=== PATIENT | female | born 1950 | race Caucasian/White ===

== ENCOUNTER 2017-08-10 11:23 | Inpatient (IN) | payer MEDICARE ==
--- NOTE | 2017-08-03 13:32 | Diagnostic Imaging Report ---
PROCEDURE: Frontal and lateral views of the chest. COMPARISON: None. INDICATIONS: PREOPERATIVE CHEST XRAY FOR COLON RESECTION FINDINGS: Lines/tubes: None. Lungs: The lungs are mildly hypoinflated. Mild left basilar subsegmental atelectasis. There is no evidence of pneumonia or pulmonary edema. Pleura: There is no pleural effusion or pneumothorax. Heart and mediastinum: The heart and the mediastinum are normal. Mild calcification of aortic arch. Bones: No acute bony abnormality. IMPRESSION: 1. No acute cardiopulmonary disease. Amanda Arita M.D. Dictated by: Amanda Arita M.D. on 08/03/2017 at 13:34 Electronically approved by: Amanda Arita M.D. on 08/03/2017 at 13:34
[2017-08-07 11:44] LABS: BASOPHILS % 0.7 % (0.0-1.0); EOSINOPHILS # (AUTO) 0.5 (0.0-0.4); EOSINOPHILS % 7.6 % (0.0-6.0); HEMATOCRIT 45.4 % (34.2-44.1); HEMOGLOBIN 15.1 g/dL (12.0-16.0); LYMPHOCYTES # (AUTO) 1.1 (1.0-3.2); LYMPHOCYTES % 18.6 % (18.0-39.1); MEAN CORPUSCULAR HEMOGLOBIN 29.8 pg (28-32); MEAN CORPUSCULAR HGB CONC 33.3 g/dL (31-35); MEAN CORPUSCULAR VOLUME 89.5 fL (81-99); MONOCYTES # (AUTO) 0.6 (0.2-0.8); MONOCYTES % 9.3 % (4.4-11.3); NEUTROPHILS # (AUTO) 3.8 (2.1-6.9); NEUTROPHILS % 63.6 % (38.7-80.0); PLATELET COUNT 280 x10e3/uL (140-360); RED BLOOD COUNT 5.07 x10e6/uL (3.6-5.1); RED CELL DISTRIBUTION WIDTH 13.3 % (11.7-14.4)
[2017-08-07 12:01] LABS: ALANINE AMINOTRANSFERASE 29 IU/L (0-55); ALBUMIN 3.4 g/dL (3.5-5.0); ALBUMIN/GLOBULIN RATIO 1.1 (0.8-2.0); ALKALINE PHOSPHATASE 79 IU/L (40-150); ANION GAP 11.9 mmol/L (8-16); BLOOD UREA NITROGEN 19 mg/dL (7-26); BUN/CREATININE RATIO 24 (6-25); CALCIUM 10.3 mg/dL (8.4-10.2); CARBON DIOXIDE 26 mmol/L (22-29); CHLORIDE 109 mmol/L (98-107); CREATININE, SERUM 0.79 mg/dL (0.57-1.11); EST GLOMERULAR FILTRATION RATE > 60 ML/MIN (60-); GLUCOSE 102 mg/dL (74-118); POTASSIUM 4.9 mmol/L (3.5-5.1); SODIUM 142 mmol/L (136-145)
[~2017-08-10] VITALS: Ht 160 cm; Wt 99.8 kg
[~2017-08-10 11:23] MED LIST: MYRBETRIQ50 MG; PANTOPRAZOLE SO40 MG PO; VITAMIN D32000 UNIT
--- OUTSIDE RECORDS SUMMARY | 2017-08-10 11:25 | XMS REPORT ---
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 Allergies, Adverse Reactions, Alerts This patient has no known allergies or adverse reactions. Medications This patient has no known medications. Results Test Description Test Time Test Comments Text Results Atomic Results Result Comments CHEST 2 VIEWS [place] [id number] [place] [id number] Patient Name: GOKUL LINDO MR #: [id number] : 1950 Age/Sex: 67/F Req # : [id number] Adm Physician: Ordered by: CHELLY BECKETT MD Report #: [id number] Location: OR Room/Bed: Procedure: [id number] DX/CHEST 2 VIEWS Exam Date: 08/03/17 Exam Time: 1240 REPORT STATUS: Signed PROCEDURE: Frontal and lateral views of the chest. COMPARISON: None. INDICATIONS: PREOPERATIVE CHEST XRAY FOR COLON RESECTION FINDINGS: Lines/tubes: None. Lungs: The lungs are mildly hypoinflated. Mild left basilar subsegmental atelectasis. There is no evidence of pneumonia or pulmonary edema. Pleura: There is no pleural effusion or pneumothorax. Heart and mediastinum: The heart and the mediastinum are normal. Mild calcification of aortic arch. Bones: No acute bony abnormality. IMPRESSION: 1. No acute cardiopulmonary disease. Amanda Thomas M.D. Dictated by: Amanda Thomas M.D. on 08/03/2017 at 13:34 Electronically approved by: Amanda Thomas M.D. on 08/03/2017 at 13:34 Dictated By: MOISES THOMAS MD, MD [id number] Transcribed By: RUPAL on 08/03/17 1339 COPY TO: CHELLY BECKETT MD
[2017-08-10] MEDS ORDERED: CEFOXITIN SOD 1 GM VIAL ONE (11:43)
[2017-08-10] MEDS ORDERED: BUPIVACAINE HCL 0.5% INJ 30 ML VIAL INJ ONE (12:44)
[2017-08-10] MEDS ORDERED: ROCURONIUM BROMIDE 10 MG/ML 5ML VIAL ONE (14:07)
[2017-08-10] MEDS ORDERED: ONDANSETRON HCL INJ 2 MG/ML VIAL ONE (14:07)
[2017-08-10] MEDS ORDERED: SEVOFLURANE INHAL SOLN 250 ML PEN BTL ONE (14:07)
[2017-08-10] MEDS ORDERED: PROPOFOL IV EMULSION 10 MG/ML 20 ML VIAL ONE (14:07)
[2017-08-10] MEDS ORDERED: EYE LUBRICANT OPTH OINT 3.5GM TUBE OP ONE (14:07)
[2017-08-10] MEDS ORDERED: NEOSTIGMINE 5 MG/5ML SYR ONE (14:07)
[2017-08-10] MEDS ORDERED: DEXAMETHASONE SOD PHOS INJ 4 MG/ML VIAL ONE (14:07)
[2017-08-10] MEDS ORDERED: LIDOCAINE HCL 2% JELLY 5 ML TUBE ONE (14:07)
[2017-08-10] MEDS ORDERED: GLYCOPYRROLATE INJ 1MG/ 5 ML SYR ONE (14:07)
[2017-08-10] MEDS ORDERED: LIDOCAINE HCL 2% LOCAL INJ 5 ML SDV VIAL INJ ONE (14:07)
[2017-08-10] MEDS: DEXTROSE 5%/LACTATED RINGERS 1,000 ML IV SCH ×2 (14:54→18:11)
[2017-08-10] MEDS ORDERED: ONDANSETRON HCL INJ 2 MG/ML VIAL IV PRN (15:00)
[2017-08-10] MEDS ORDERED: NALOXONE HCL INJ 0.4 MG/ML AMP IV PRN ×2 (15:00→15:45)
[2017-08-10] MEDS ORDERED: DIPHENHYDRAMINE HCL INJ 50 MG/ML VIAL IM PRN (15:00)
[2017-08-10] MEDS ORDERED: MORPHINE SULFATE 1 MG/ML 30ML PCA IV PRN (15:00)
[2017-08-10] MEDS ORDERED: ACETAMINOPHEN 1000 MG/100 ML IV PRN ×2 (15:00→15:45)
[2017-08-10] MEDS ORDERED: KETOROLAC TROMETHAMINE 30 MG/ML VIAL IV PRN ×2 (15:00→15:45)
[2017-08-10] MEDS ORDERED: MORPHINE SULFATE 1 MG/ML 30ML PCA ONE (15:12)
--- NOTE | 2017-08-10 15:32 | Operative Report ---
DATE OF PROCEDURE: August 10, 2017 PREOPERATIVE DIAGNOSIS: Left colon diverticulosis, sigmoid colon stricture. POSTOPERATIVE DIAGNOSIS: Left colon diverticulosis, sigmoid colon stricture. PROCEDURE: Laparoscopic-assisted left colon resection. PREPRESS TECHNICIAN: None. ANESTHESIA: General. INDICATIONS AND FINDINGS: The patient is a 67-year-old female with complaints of bleeding with bowel movements and change in her stools. Workup revealed a stricture in the mid sigmoid colon as well as diverticulosis involving the left colon. At surgery, there was diverticular disease involving the descending colon and sigmoid colon, particularly severe in the mid sigmoid colon. Distal sigmoid colon was free of diverticulosis. There was an area in the mid sigmoid colon which was very thickened in the area where the stricture was identified. TECHNIQUE: After adequate general endotracheal anesthesia, with the patient in the supine position, the abdomen was prepped and draped in a sterile fashion with [place] solution. Skin just below the umbilicus was infiltrated with 0.5% Marcaine. Incision was made just below the umbilicus. Abdominal wall was elevated, and a Veress needle was introduced. Pneumoperitoneum was then created. A 10-mm trocar and cannula were then passed through this wound, and the laparoscopic camera was introduced. Initial laparoscopy revealed no free fluid. Colon proximally was mildly dilated. A 5-mm trocar and cannula were placed suprapubically, and a 5-mm trocar and cannula were placed in the epigastrium. These were placed under direct vision. The left colon was mobilized by dividing the peritoneal attachments. Mobilization was carried up to the splenic flexure. The splenic flexure colon was mobilized by dividing the peritoneal attachments, also dissecting omentum away from the distal transverse colon until the colon was completely freed from the spleen and upper abdomen. The distal colon also was mobilized by dividing peritoneal attachments. There were adhesions around the colon which were lysed. The left ureter was identified and preserved. Colon was mobilized all the way down to the peritoneal reflection. The right ureter was also identified and preserved. Once the colon had been completely mobilized, a lower midline incision was made. The colon was delivered up into the wound. The left colon was mobilized. It was dissected. The proximal colon, which was at the distal transverse colon, was divided with the CHARLES stapler. The sigmoid colon was also divided with a CHARLES stapler below the area of where the colon was thickened and inflamed. Mesentery was divided with a ligature device, and the colon was removed. Approximately 30 cm of colon was removed. Initially, anastomosis was made between the proximal and distal colon with a CHARLES stapler and TL-60 stapler. However, the anastomosis did not come together well. It was decided it needed to be redone. This anastomosis was then resected. The colon proximal and distal was divided with a CHARLES stapler. Then the anastomosis was redone and hand sewn in end-to-end fashion using 3-0 silk and 3-0 Vicryl. There was no tension on the anastomosis. Pericolonic fat was also sutured over the suture line along with omentum. The peritoneal cavity was irrigated with saline. All fluid aspirated was inspected for hemostasis, which was seen to be adequate. It was irrigated once again with saline. All fluid aspirated and inspected for hemostasis, which was seen to be adequate. Midline fascia was then closed with a running suture of #1 PDS. Subcutaneous tissue was irrigated with saline, and the skin was closed with kendall to all wounds. Patient tolerated the procedure well. Sterile dressing was applied. Estimated blood loss was 200 mL. There were no complications. All counts were correct. Patient was taken to the recovery room in satisfactory condition. Job#: [id number] cc:MD KATIE AKHTAR MD
[2017-08-10] MEDS ORDERED: HYDROMORPHONE 0.2MG/ML-SOD CHL 30ML PCA SYRINGE IV PRN (15:45)
[2017-08-10] MEDS ORDERED: DIPHENHYDRAMINE HCL 25 MG CAP PO PRN (15:45)
[2017-08-10 16:46] VITALS: BP 135/66
[2017-08-10] MEDS ORDERED: CEFOXITIN 1GM/ DEXTROSE 50ML 50 ML IV SCH (18:00)
[2017-08-10] MEDS ORDERED: CEFOXITIN SOD 1 GM VIAL IV SCH (18:00)
[2017-08-10] MEDS: CEFOXITIN SOD 1 GM VIAL IV SCH (18:11)
[2017-08-10] MEDS: ONDANSETRON HCL 4 MG ORAL DISINTEGRATING TAB SL PRN ×2 (18:19→22:55)
[2017-08-10 18:34] VITALS: BP 135/66
[2017-08-10] MEDS ORDERED: FENTANYL CITRATE/PF 100MCG/2 ML INJ ONE (19:44)
[2017-08-10] MEDS ORDERED: MIDAZOLAM HCL 2 MG/2 ML VIAL ONE (19:44)
[2017-08-10 20:00] VITALS: BP 119/57
[2017-08-11] VITALS (7 sets, daily range): BP systolic 90–126; BP diastolic 51–64
[2017-08-11] MEDS: CEFOXITIN SOD 1 GM VIAL IV SCH ×3 (01:41→12:00)
[2017-08-11] MEDS: DEXTROSE 5%/LACTATED RINGERS 1,000 ML IV SCH ×4 (04:11→22:54)
[2017-08-11] MEDS: ONDANSETRON HCL 4 MG ORAL DISINTEGRATING TAB SL PRN ×2 (04:36→08:30)
[2017-08-11] MEDS ORDERED: HYDROMORPHONE 0.2MG/ML-SOD CHL 30ML PCA SYRINGE IV PRN (06:00)
[2017-08-11 07:13] LABS: BASOPHILS % 0.1 % (0.0-1.0); EOSINOPHILS % 0.1 % (0.0-6.0); HEMATOCRIT 40.7 % (34.2-44.1); HEMOGLOBIN 13.4 g/dL (12.0-16.0); LYMPHOCYTES # (AUTO) 0.5 (1.0-3.2); LYMPHOCYTES % 4.8 % (18.0-39.1); MEAN CORPUSCULAR HEMOGLOBIN 30.1 pg (28-32); MEAN CORPUSCULAR HGB CONC 32.9 g/dL (31-35); MEAN CORPUSCULAR VOLUME 91.5 fL (81-99); MONOCYTES # (AUTO) 1.1 (0.2-0.8); MONOCYTES % 11.4 % (4.4-11.3); NEUTROPHILS % 83.2 % (38.7-80.0); PLATELET COUNT 245 x10e3/uL (140-360); RED BLOOD COUNT 4.45 x10e6/uL (3.6-5.1); RED CELL DISTRIBUTION WIDTH 13.4 % (11.7-14.4)
[2017-08-11 07:42] LABS: ANION GAP 11.4 mmol/L (8-16); CALCIUM 9.8 mg/dL (8.4-10.2); CREATININE, SERUM 0.94 mg/dL (0.57-1.11); POTASSIUM 4.4 mmol/L (3.5-5.1)
[2017-08-11] MEDS: PANTOPRAZOLE SOD 40 MG TABEC PO SCH (08:30)
[2017-08-12] VITALS (7 sets, daily range): BP systolic 103–139; BP diastolic 55–62
[2017-08-12] MEDS: DEXTROSE 5%/LACTATED RINGERS 1,000 ML IV SCH ×2 (06:54→13:14)
[2017-08-12] MEDS ORDERED: HYDROCODONE/APAP 5MG-325MG TAB PO PRN (07:15)
[2017-08-12 07:38] LABS: HEMATOCRIT 37.8 % (34.2-44.1); HEMOGLOBIN 12.4 g/dL (12.0-16.0); MEAN CORPUSCULAR HEMOGLOBIN 29.8 pg (28-32); MEAN CORPUSCULAR HGB CONC 32.8 g/dL (31-35); MEAN CORPUSCULAR VOLUME 90.9 fL (81-99); PLATELET COUNT 224 x10e3/uL (140-360); RED BLOOD COUNT 4.16 x10e6/uL (3.6-5.1); RED CELL DISTRIBUTION WIDTH 13.5 % (11.7-14.4)
[2017-08-12 07:58] LABS: BLOOD UREA NITROGEN 12 mg/dL (7-26); BUN/CREATININE RATIO 16 (6-25); CARBON DIOXIDE 29 mmol/L (22-29); CHLORIDE 112 mmol/L (98-107); CREATININE, SERUM 0.73 mg/dL (0.57-1.11); EST GLOMERULAR FILTRATION RATE > 60 ML/MIN (60-); GLUCOSE 117 mg/dL (74-118); SODIUM 145 mmol/L (136-145)
[2017-08-12] MEDS: PANTOPRAZOLE SOD 40 MG TABEC PO SCH (08:02)
[2017-08-12 10:44] LABS: ANISOCYTOSIS SLIGHT; BAND NEUTROPHILS % (MANUAL) 1 %; LYMPHOCYTES % (MANUAL) 17 % (19-48); MONOCYTES % (MANUAL) 9 % (3.4-9.0); MYELOCYTES % (MANUAL) 1 % (0-0); NEUTROPHILS % (MANUAL) 69 % (40-74)
[2017-08-12 10:45] LABS: HYPOCHROMASIA SLIGHT; PLATELET ESTIMATE ADEQUATE; PLATELET MORPHOLOGY COMMENT NORMAL; RBC MORPHOLOGY COMMENT NORMAL
[2017-08-13] VITALS: BP 109/54
[2017-08-13 04:00] VITALS: BP 108/51
[2017-08-13 07:39] VITALS: BP 108/51
[2017-08-13] MEDS: DEXTROSE 5%/LACTATED RINGERS 1,000 ML IV SCH (07:59)
[2017-08-13] MEDS: PANTOPRAZOLE SOD 40 MG TABEC PO SCH (07:59)
[2017-08-13 08:28] VITALS: BP 132/64
[2017-08-13 11:35] VITALS: BP 131/57
--- NOTE | 2017-08-13 16:50 | Discharge Summary ---
ADMITTING DIAGNOSES 1. Sigmoid colon stricture. 2. Left colon diverticulosis. DISCHARGE DIAGNOSES 1. Sigmoid colon stricture. 2. Left colon diverticulosis. PRINCIPAL PROCEDURE: Laparoscopic-assisted left colon resection. HISTORY OF PRESENT ILLNESS: The patient is a 67-year-old female who had complaints of bleeding with bowel movements and findings suggestive of ischemic colitis with a stricture. HOSPITAL COURSE: The patient was admitted to the hospital and underwent surgery the same day as admission. She had laparoscopic-assisted left colon resection. Postoperatively, the patient was stable. She was seen in consultation by Dr. Chung Carter for medical management. She was started on a liquid diet on the 1st postoperative day. She started passing flatus. Bowel function returned to normal. Wounds remained clean. Diet was advanced without problem to a regular diet. She was discharged home on the 3rd postop day. At the time of discharge, she was tolerating her diet. Wounds were clean. She was having bowel movements. Discharge medication is [place]. She will follow up with Dr. Cheney approximately 1 week after discharge. She was sent home in satisfactory condition on a regular diet. Job#: [id number]
== END 2017-08-13 15:07 | disposition home or self-care (01) | DRG 330 ==
LOC: OR 11:23 → MED/SURG 15:42
PROVIDERS: ADMIT Surgery; ATTEND Surgery
PROC: 0DTG4ZZ Resection of Left Large Intestine, Percutaneous Endoscopic Approach (ICD-10-PCS; principal; 2017-08-10 13:30)
DX: K57.30 Diverticulosis of large intestine without perforation or abscess without bleeding (principal); K56.699 Other intestinal obstruction unspecified as to partial versus complete obstruction; K55.9 Vascular disorder of intestine, unspecified; K21.9 Gastro-esophageal reflux disease without esophagitis
CPT/HCPCS: 36415; 71046; 80048; 80053; 85007; 85025; 85027; 86850; 86900; 88307; 93005; J0694; J1100; J1885; J2001; J2250; J2270; J2405; J7120

== ENCOUNTER 2021-11-23 15:37 | Emergency (ER) | payer MEDICARE ==
[~2021-11-23] VITALS: Ht 160 cm; Wt 89.8 kg
[2021-11-23 16:31] LABS: BASOPHILS % 0.3 % (0.0-1.0); EOSINOPHILS # (AUTO) 0.1 (0.0-0.4); EOSINOPHILS % 0.7 % (0.0-6.0); HEMATOCRIT 46.7 % (34.2-44.1); LYMPHOCYTES # (AUTO) 1.1 (1.0-3.2); LYMPHOCYTES % 10.4 % (18.0-39.1); MEAN CORPUSCULAR HEMOGLOBIN 29.6 pg (28-32); MEAN CORPUSCULAR HGB CONC 32.1 g/dL (31-35); MEAN CORPUSCULAR VOLUME 92.3 fL (81-99); MONOCYTES # (AUTO) 0.8 (0.2-0.8); MONOCYTES % 7.6 % (4.4-11.3); NEUTROPHILS # (AUTO) 8.3 (2.1-6.9); NEUTROPHILS % 80.6 % (38.7-80.0); PLATELET COUNT 207 x10e3/uL (140-360); RED BLOOD COUNT 5.06 x10e6/uL (3.6-5.1)
[2021-11-23 16:35] LABS: INR 0.93; PARTIAL THROMBOPLASTIN TIME 24.1 seconds (23.8-35.5); PROTHROMBIN TIME 13.3 seconds (11.9-14.5)
[2021-11-23 16:46] LABS: ALBUMIN 3.2 g/dL (3.5-5.0); ALBUMIN/GLOBULIN RATIO 0.9 (0.8-2.0); CALCIUM 9.7 mg/dL (8.4-10.2); CREATININE, SERUM 0.76 mg/dL (0.57-1.11); MAGNESIUM 1.9 MG/DL (1.3-2.1)
[2021-11-23 16:52] LABS: CREATINE KINASE MB 2.2 ng/mL (0-5.0)
[2021-11-23] MEDS ORDERED: IOPAMIDOL 370 MG/ML 100 ML INFUS..BTL INJ ONE (18:31)
[2021-11-23 18:51] LABS: CLARITY,URINE CLEAR (CLEAR); COLOR,URINE YELLOW (YELLOW); LEUKOCYTE ESTERASE ,URINE NEGATIVE (NEGATIVE)
[2021-11-23 18:52] LABS: KETONES,URINE 2+ (NEGATIVE); NITRITE,URINE NEGATIVE (NEGATIVE); PROTEIN,URINE DIPSTICK 2+ (NEGATIVE); URINE UROBILINOGEN 0.2 mg/dL (0.2 - 1)
[2021-11-23 18:54] LABS: BACTERIA,URINE MANY /HPF; EPITHELIAL CELLS,URINE MODERATE /LPF; MUCUS,URINE MANY (RARE)
[2021-11-23] MEDS ORDERED: HEPARIN 25,000 UNIT 1,200 UNIT in DEXTROSE 5% 250ML 250 ML IV SCH (19:45)
[2021-11-23] MEDS ORDERED: HEPARIN SOD (PORCINE) 5,000 UNIT/ML VIAL IV ONE (19:45)
[2021-11-23] MEDS ORDERED: HEPARIN 25,000 UNIT DRIP IV ONE (20:04)
[2021-11-23 21:40] VITALS: BP 105/69
== END 2021-11-23 21:42 | disposition other institution (70) ==
LOC: ER 15:46
DX: R06.00 Dyspnea, unspecified (principal); I26.99 Other pulmonary embolism without acute cor pulmonale; R05.9 Cough, unspecified; R73.9 Hyperglycemia, unspecified; I10 Essential (primary) hypertension; K21.9 Gastro-esophageal reflux disease without esophagitis; Z20.822 Contact with and (suspected) exposure to COVID-19
CPT/HCPCS: 36415; 71045; 71260; 80053; 81001; 82550; 82553; 83735; 83880; 84484; 85025; 85379; 85610; 85730; 87086; 93005; 99285; J0456; J0696; J1644; J7050; Q9967; U0002